=== PATIENT | female | born 1960 | race Caucasian/White ===

== ENCOUNTER 2017-06-29 16:33 | Emergency (ER) | payer OTHER ==
--- NOTE | 2017-06-29 16:44 | PDOC ---
Rapid Medical Evaluation Time Seen by Provider: 06/29/17 16:40 Medical Evaluation: Allergies Allergy/AdvReac Type Severity Reaction Status Date / Time No Known Allergies Allergy Verified 06/29/17 16:40 06/29/17 16:41 57 year old female, history of "muscle pains", presenting with right lower jaw dental pain and swelling since Tuesday. Thinks she may have had fevers/chills. No trismus or difficulty swallowing. Has not been able to see dentist. -To [facility] for further evaluation
[2017-06-29 16:46] VITALS: BP 104/64; PULSE 76; TEMP 98.8; BMI 23.2
[2017-06-29] MEDS ORDERED: CLINDAMYCIN HCL 300 MG CAPSULE PO ONE (17:35)
--- NOTE | 2017-06-29 17:35 | PDOC ---
History of Present Illness - General Chief Complaint: Toothache Stated Complaint: PAIN Time Seen by Provider: 06/29/17 16:40 History Source: Patient Exam Limitations: No Limitations - History of Present Illness Initial Comments: 06/29/17 17:25 Here with complaints of toothache and swelling to face 3 days. States onset of pain started Tuesday morning is progressively worsened. Now has swelling to the lower aspect of her face, although denies fevers and drainage from the area. Has a dental appointment on Tuesday but states swelling and pain has progressively worsened. 06/29/17 18:07 Timing/Duration: unsure, 1 week Associated Symptoms: reports: denies symptoms. denies: fever/chills Past History - Travel Traveled outside of the country in the last 30 days: No Close contact w/someone who was outside of country & ill: No - Past Medical History Allergies/Adverse Reactions: Allergies Allergy/AdvReac Type Severity Reaction Status Date / Time No Known Allergies Allergy Verified 06/29/17 16:40 Home Medications: Ambulatory Orders Clindamycin HCl 300 mg PO TID #21 capsule 06/29/17 Oxycodone HCl/Acetaminophen [Percocet 5-325 mg Tablet -] 1 - 2 tab PO Q4H PRN # 7 tablet MDD 4 06/29/17 COPD: No - Suicide/Smoking/Psychosocial Hx Smoking History: Never smoked Have you smoked in the past 12 months: No Information on smoking cessation initiated: No Hx Alcohol Use: No Drug/Substance Use Hx: No Substance Use Type: None Review of Systems - Review of Systems Able to Perform ROS?: Yes Is the patient limited Tamazight proficient: Yes Constitutional: Yes: Symptoms Reported, See HPI, Malaise. No: Fever HEENTM: Yes: See HPI, Nose Congestion, Mouth Swelling, Other (facial swelling ) . No: Symptoms Reported Respiratory: Yes: See HPI. No: Symptoms reported Integumentary: No: Symptoms Reported Neurological: Yes: Symptoms reported, See HPI, Headache *Physical Exam - Vital Signs Last Vital Signs Temp Pulse Resp BP Pulse Ox 98.8 F 76 14 104/64 100 06/29/17 16:41 06/29/17 16:41 06/29/17 16:41 06/29/17 16:41 06/29/17 16:41 - Physical Exam General Appearance: Yes: Nourished, Appropriately Dressed, Apparent Distress, Moderate Distress HEENT: positive: VENECIA, TMs Normal, Pharynx Normal, Other (facial swelling to right lower mandibular angle with tenderness that communicates to inner gingival surface. 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 Patient has follow-up appointment with dentist in 2 days and understands need for immediate follow-up for worsening swelling, fevers or worsened pain to face. 06/29/17 18:34 Patient states feels much improved after clindamycin infusion, and Toradol. Facial swelling is slightly resolved. We will follow through with by mouth antibiotics and dental appointment. Understands need to return *DC/Admit/Observation/Transfer Diagnosis at time of Disposition: Dental disorder - Discharge Dispostion Disposition: HOME Condition at time of disposition: Stable Admit: No - Prescriptions Prescriptions: Clindamycin HCl 300 mg PO TID #21 capsule Oxycodone HCl/Acetaminophen [Percocet 5-325 mg Tablet -] 1 - 2 tab PO Q4H PRN # 7 tablet MDD 4 PRN Reason: Pain - Referrals Referrals: Chaitanya Smith MD [Primary Care Provider] - - Patient Instructions Printed Discharge Instructions: DI for Dental Pain Additional Instructions: Rest, drink lots of fluids: Teas, water, soups Saltwater gargles/ keep mouth clean and rinse after each meal May use wet teabag for pain relief to area Avoid hard chewing foods, stick to ice cream, Jell-O, yogurt etc. Tylenol or Motrin for fever and pain Use 1/2-1 tablet of Percocet every 6 hours as needed for severe pain, understanding will make dizzy and sleepy Complete all medication as prescribed Seek dental appointment as soon as possible for evaluation of dental injury/pain Followup with private physician in one to 2 days as needed Return to emergency department for worsened symptoms, fevers, swelling to face or worsened pain - Post Discharge Activity Forms/Work/School Notes: Back to Work
[2017-06-29] MEDS ORDERED: KETOROLAC TROMETHAMINE 30 MG/1 ML VIAL IVPUSH ONE (17:37)
[2017-06-29] MEDS ORDERED: CLINDAMYCIN 600MG PREMIX IVPB 600 MG/50 ML BAG IVPB ONE (17:50)
[2017-06-29] MEDS ORDERED: KETOROLAC TROMETHAMINE 30 MG/1 ML VIAL ONE (17:50)
== END 2017-06-29 18:37 | disposition home or self-care (01) ==
LOC: JERFT 16:33
PROC: 3E0333Z Introduction of Anti-inflammatory into Peripheral Vein, Percutaneous Approach (ICD-10-PCS; principal; 2017-06-29)
DX: K08.89 Other specified disorders of teeth and supporting structures (principal)
CPT/HCPCS: 96372; 99281-25

== ENCOUNTER 2018-05-09 20:38 | Emergency (ER) | payer OTHER ==
--- NOTE | 2018-05-09 20:50 | PDOC ---
Rapid Medical Evaluation Time Seen by Provider: 05/09/18 20:47 Medical Evaluation: Allergies Allergy/AdvReac Type Severity Reaction Status Date / Time No Known Allergies Allergy Verified 06/29/17 16:40 05/09/18 20:47 I have performed a brief in-person evaluation of this patient. The patient presents with a chief complaint of: fever, upper back and chest pain Pertinent physical exam findings:T-100.2. Lungs CTAB. RRR. No m/r/g. I have ordered the following: urine, labs, cxr, EKG The patient will proceed to the ED for further evaluation. Discharge Disposition - Diagnosis Chest pain - Referrals - Patient Instructions - Post Discharge Activity
[2018-05-09 20:51] VITALS: BP 128/61; BMI 27.1
[2018-05-09 21:48] LABS: BASO % 0.7 % (0-2.0); EOS % 0.1 % (0-4.5); HEMATOCRIT 36.1 % (32.4-45.2); LYMPH % 11.4 % (8-40); MCH 28.9 pg (25.7-33.7); MCHC 35.9 g/dl (32.0-36.0); MEAN CELL VOLUME 80.5 fl (80-96); MEAN PLT VOLUME 8.3 fl (7.5-11.1); MONO % 7.7 % (3.8-10.2); NEUT % 80.1 % (42.8-82.8); PLATELET COUNT 218 K/MM3 (134-434); RBC 4.48 M/mm3 (3.60-5.2); RDW 13.8 % (11.6-15.6)
[2018-05-09 22:18] LABS: ALBUMIN 4.1 g/dl (3.4-5.0); ALK PHOS 82 U/L (45-117); ANION GAP 6 MMOL/L (8-16); BILIRUBIN,TOTAL 0.4 mg/dL (0.2-1); BLOOD UREA NITROGEN 13 mg/dL (7-18); CHLORIDE 102 mmol/L (98-107); CO2 29 mmol/L (21-32); GLUCOSE,RANDOM 99 mg/dL (74-106); MAGNESIUM 1.9 mg/dL (1.8-2.4); POTASSIUM 3.7 mmol/L (3.5-5.1); SGOT/AST 15 U/L (15-37); SGPT/ALT 18 U/L (13-61); SODIUM 136 mmol/L (136-145); TOT PROT 7.6 g/dl (6.4-8.2)
--- NOTE | 2018-05-09 22:53 | PDOC ---
History of Present Illness - General History Source: Patient Exam Limitations: No Limitations - History of Present Illness Initial Comments: 05/09/18 23:04 The patient is a 57 year old female with no significant PMH who presents to the emergency department with body aches, fever, and sore throat for the past 2 days. Patient's temperature in the ER is 100.2. The patient denies chest pain, shortness of breath, headache and dizziness. Denies chills, nausea, vomit, diarrhea and constipation. Denies dysuria, frequency, urgency and hematuria. Allergies: NKA Past surgical history: None reported. Social history: No reported alcohol, drug or cigarette use. PCP: Dr. Chaitanya Smith <Jenniffer Galvez - Last Filed: 05/09/18 23:03> <Milly Gonzáles - Last Filed: 05/09/18 23:34> - General Chief Complaint: Cold Symptoms Stated Complaint: BACK PAIN/FEVER Time Seen by Provider: 05/09/18 20:47 Past History <Jenniffer Galvez - Last Filed: 05/09/18 23:03> - Past Medical History COPD: No - Suicide/Smoking/Psychosocial Hx Smoking History: Never smoked Have you smoked in the past 12 months: No Information on smoking cessation initiated: No Hx Alcohol Use: No Drug/Substance Use Hx: No Substance Use Type: None <Milly Gonzáles - Last Filed: 05/09/18 23:34> - Past Medical History Allergies/Adverse Reactions: Allergies Allergy/AdvReac Type Severity Reaction Status Date / Time No Known Allergies Allergy Verified 05/09/18 20:51 Home Medications: Ambulatory Orders Clindamycin HCl 300 mg PO TID #21 capsule 06/29/17 Oxycodone HCl/Acetaminophen [Percocet 5-325 mg Tablet -] 1 - 2 tab PO Q4H PRN # 7 tablet MDD 4 06/29/17 Penicillin V Potassium [Pen Vee K -] 500 mg PO BID #20 tablet 05/09/18 Review of Systems - Review of Systems Able to Perform ROS?: Yes Comments:: 05/09/18 23:04 ADULT ROS GENERAL/CONSTITUTIONAL: No chills. No weakness. (+) fever. HEAD, EYES, EARS, NOSE AND THROAT: No change in vision. No ear pain or discharge. (+) sore throat. GASTROINTESTINAL: No nausea, vomiting, diarrhea or constipation. GENITOURINARY: No dysuria, frequency, or change in urination. CARDIOVASCULAR: No chest pain or shortness of breath. RESPIRATORY: No cough, wheezing, or hemoptysis. MUSCULOSKELETAL: No joint or muscle swelling or pain. No neck or back pain. (+) body aches. SKIN: No rash NEUROLOGIC: No headache, vertigo, loss of consciousness, or change in strength/ sensation. ENDOCRINE: No increased thirst. No abnormal weight change. HEMATOLOGIC/LYMPHATIC: No anemia, easy bleeding, or history of blood clots. ALLERGIC/IMMUNOLOGIC: No hives or skin allergy. <Jenniffer Galvez - Last Filed: 05/09/18 23:03> *Physical Exam - Vital Signs Last Vital Signs Temp Pulse Resp BP Pulse Ox 100.2 F H 94 H 16 128/61 100 05/09/18 20:49 05/09/18 20:49 05/09/18 20:49 05/09/18 20:49 05/09/18 20:49 - Physical Exam Comments: 05/09/18 23:06 ADULT EXAM GENERAL: Awake, in no acute distress HEAD: No signs of trauma EYES: PERRLA, EOMI, sclera anicteric, conjunctiva clear, visual acuity grossly intact ENT: Auricles normal inspection, hearing grossly normal, nares patent. Moist mucosa (+) Mild pharyngeal erythema, no exudates. NECK: Normal ROM, supple, no lymphadenopathy, JVD, or masses LUNGS: Breath sounds equal, clear to auscultation bilaterally. No wheezes, and no crackles. Normal work of breathing. HEART: Regular rate and rhythm, normal S1 and S2, no murmurs, rubs or gallops ABDOMEN: Soft, nontender, normoactive bowel sounds. No guarding, no rebound. No masses. Non-distended. CHEST WALL: BACK: No midline tenderness. EXTREMITIES: Normal range of motion, no edema. No clubbing or cyanosis. No erythema, or tenderness NEUROLOGICAL: Alert, and fully oriented x4, Cranial nerves II through XII grossly intact. Normal speech, normal gait. DTRs 2/4 bilaterally. SKIN: Warm, Dry, normal turgor, no rashes or lesions noted. <Jenniffer Galvez - Last Filed: 05/09/18 23:03> - Vital Signs Last Vital Signs Temp Pulse Resp BP Pulse Ox 100.2 F H 94 H 16 128/61 100 05/09/18 20:49 05/09/18 20:49 05/09/18 20:49 05/09/18 20:49 05/09/18 20:49 <EliecerMilly - Last Filed: 05/09/18 23:34> Moderate Sedation - Procedure Monitoring Vital Signs: Procedure Monitoring Vital Signs Temperature 100.2 F H 05/09/18 20:49 Pulse Rate 94 H 05/09/18 20:49 Respiratory Rate 16 05/09/18 20:49 Blood Pressure 128/61 05/09/18 20:49 O2 Sat by Pulse Oximetry (%) 100 05/09/18 20:49 <Jenniffer Galvez - Last Filed: 05/09/18 23:03> - Procedure Monitoring Vital Signs: Procedure Monitoring Vital Signs Temperature 100.2 F H 05/09/18 20:49 Pulse Rate 94 H 05/09/18 20:49 Respiratory Rate 16 05/09/18 20:49 Blood Pressure 128/61 05/09/18 20:49 O2 Sat by Pulse Oximetry (%) 100 05/09/18 20:49 <Milly Gonzáles Na - Last Filed: 05/09/18 23:34> ED Treatment Course - LABORATORY CBC & Chemistry Diagram: 05/09/18 21:38 05/09/18 21:38 - ADDITIONAL ORDERS Additional order review: Laboratory Results 05/09/18 21:38 Sodium 136 Potassium 3.7 Chloride 102 Carbon Dioxide 29 Anion Gap 6 L BUN 13 Creatinine 1.0 Creat Clearance w eGFR 57.15 Random Glucose 99 Calcium 9.0 Magnesium 1.9 Total Bilirubin 0.4 AST 15 ALT 18 Alkaline Phosphatase 82 Creatine Kinase 126 Troponin I < 0.02 Total Protein 7.6 Albumin 4.1 05/09/18 21:38 RBC 4.48 MCV 80.5 MCHC 35.9 RDW 13.8 MPV 8.3 Neutrophils % 80.1 Lymphocytes % 11.4 Monocytes % 7.7 Eosinophils % 0.1 Basophils % 0.7 <Jenniffer Galvez - Last Filed: 05/09/18 23:03> - LABORATORY CBC & Chemistry Diagram: 05/09/18 21:38 05/09/18 21:38 - ADDITIONAL ORDERS Additional order review: Laboratory Results 05/09/18 21:38 Sodium 136 Potassium 3.7 Chloride 102 Carbon Dioxide 29 Anion Gap 6 L BUN 13 Creatinine 1.0 Creat Clearance w eGFR 57.15 Random Glucose 99 Calcium 9.0 Magnesium 1.9 Total Bilirubin 0.4 AST 15 ALT 18 Alkaline Phosphatase 82 Creatine Kinase 126 Troponin I < 0.02 Total Protein 7.6 Albumin 4.1 05/09/18 21:38 RBC 4.48 MCV 80.5 MCHC 35.9 RDW 13.8 MPV 8.3 Neutrophils % 80.1 Lymphocytes % 11.4 Monocytes % 7.7 Eosinophils % 0.1 Basophils % 0.7 <Milly Gonzáles - Last Filed: 05/09/18 23:34> Medical Decision Making - Medical Decision Making 05/09/18 23:28 57-year-old female with body aches sore throat and low-grade fever EKG shows a sinus rhythm at 86 bpm with no acute ST elevations There are T wave inversions in leads V3 and T wave flattening in leads 23 and aVF Labs on otherwise unremarkable Rapid strep is positive IV Tylenol 1 g, normal saline 1 L IV fluid bolus given in the ED Plan for discharge on Pen-Ve K with primary care follow-up <Milly Gonzáles - Last Filed: 05/09/18 23:34> *DC/Admit/Observation/Transfer - Attestations Scribe Attestion: 05/09/18 23:06 Documentation prepared by Jenniffer Galvez, acting as product manager medical device for Milly Gonzáles DO. <Jenniffer Galvez - Last Filed: 05/09/18 23:03> - Discharge Dispostion Decision to Admit order: No - Attestations Physician Attestion: 05/09/18 23:30 I, Dr Milly Gonzáles, attest that this document has been prepared under my direction and personally reviewed by me in its entirety. I further attest, that it accurately reflects all work, procedures and medical decision making performed by me. <Milly Gonzáles - Last Filed: 05/09/18 23:34> Diagnosis at time of Disposition: Strep pharyngitis - Discharge Dispostion Disposition: HOME Condition at time of disposition: Stable - Referrals Referrals: Chaitanya Smith MD [Primary Care Provider] - - Patient Instructions Printed Discharge Instructions: DI for Strep Throat Print Language: KINYARWANDA - Post Discharge Activity Forms/Work/School Notes: Back to Work
[2018-05-09] MEDS ORDERED: SODIUM CHLORIDE 1,000 ML IV STA (23:02)
[2018-05-09] MEDS ORDERED: ACETAMINOPHEN 1000 MG/100 ML VIAL (NON FORMULARY) IVPB ONE (23:02)
[2018-05-09] MEDS ORDERED: ACETAMINOPHEN INJECTION 100 ML IVPB ONE (23:15)
[2018-05-09 23:57] LABS: URINE APPEARANCE SLCLOUDY; URINE BILIRUBIN NEGATIVE (<2.0 mg/dL); URINE COLOR LTYELLOW; URINE GLUCOSE (UA) NEGATIVE (NEGATIVE); URINE KETONE NEGATIVE (NEGATIVE); URINE LEUK ESTERASE 2+ (NEGATIVE); URINE NITRITE NEGATIVE (NEGATIVE); URINE PROTEIN NEGATIVE (NEGATIVE); URINE UROBILINOGEN NEGATIVE mg/dL (0.2-1.0)
[2018-05-10 00:14] LABS: EPI CELLS FEW /HPF (FEW); URINE BACTERIA RARE /hpf (NONE SEEN); URINE HYALINE CAST 3 /lpf
[2018-05-10 00:35] VITALS: PULSE 92; TEMP 99.8
--- NOTE | 2018-05-10 11:05 | EKG ---
Test Reason : Blood Pressure : / mmHG Vent. Rate : 086 BPM Atrial Rate : 086 BPM P-R Int : 134 ms QRS Dur : 072 ms QT Int : 330 ms P-R-T Axes : 067 053 -18 degrees QTc Int : 394 ms NORMAL SINUS RHYTHM ABNORMAL ECG NO PREVIOUS ECGS AVAILABLE Confirmed by TALIA BARBER, LUZ MARIA ([id number]) on 05/10/2018 11:05:02 AM Referred By: Confirmed By:LUZ MARIA MELGAR MD
== END 2018-05-10 00:35 | disposition home or self-care (01) ==
LOC: JER 20:38
PROC: 3E033NZ Introduction of Analgesics, Hypnotics, Sedatives into Peripheral Vein, Percutaneous Approach (ICD-10-PCS; principal; 2018-05-09)
DX: J02.0 Streptococcal pharyngitis (principal); B95.0 Streptococcus, group A, as the cause of diseases classified elsewhere
CPT/HCPCS: 71046-TC-FY; 80053; 81003; 81015; 82550; 83735; 84484; 85025; 87804; 87880; 93005; 93010; 96374; 99282-25; J0131; J7030